=== PATIENT | male | born 1990 | race Asian ===

== ENCOUNTER 2024-01-24 19:36 | Emergency (ER) | payer OTHER, SELFPAY ==
--- NOTE | ~2024-01-24 | XR_ITS ---
EXAMINATION: XR chest 2V Exam Date/Time: 01/24/2024 21:40 CDT HISTORY: chest pain Comparison: None. RESULT: Lines, tubes, and devices: None. Lungs and pleura: Clear. Cardiomediastinal silhouette: Normal. Other: No acute osseous or upper abdominal finding. IMPRESSION: No acute cardiopulmonary process. Reviewed, dictated and finalized at location K.
--- NOTE | 2024-01-24 19:38 | ECG_ITS ---
Test Date: 2024-01-24 19:41:[address] Rate: 80 P: 72 [place]: 191 QRS: 67 QRSD: 107 T: 59 QT: 351 QTc: 407 Interpretive Statements SINUS RHYTHM NONSPECIFIC T-WAVE ABNORMALITY No previous ECG available for comparison Electronically Signed On 01-25-2024 10:50:40 CDT by rPashant Paulson M.D.
[2024-01-24 19:43] VITALS: BP 143/90; PULSE 86; RESP 19; TEMP 36.6; O2SAT 100
[2024-01-24 19:57] LABS: Basophils Percent Auto 0.8 % (0.2-1.2); Eosinophils Percent Auto 0.8 % (0-4.4); Hematocrit 44.3 % (42.0-52.0); Hemoglobin 15.2 g/dL (14.0-18.0); Immature Granulocyte Absolute 0.01 K/mm3 (0.00-0.031); Immature Granulocyte Percent A 0.2 % (0-0.5); Lymphocytes Absolute Auto 1.34 K/mm3 (0.9-3.2); Mean Corpuscular HGB Conc 34.3 g/dl (32-36); Mean Corpuscular Hemoglobin 29.8 pg (26-34); Mean Corpuscular Volume 86.9 fl (80-100); Mean Platelet Volume 12.2 fl (7.4-10.4); Monocytes Absolute Auto 0.4 K/mm3 (0.1-0.6); Monocytes Percent Auto 7.7 % (2.6-8.5); Neutrophils Percent Auto 62.5 % (45.5-73.1); Platelet Count Result 156 k/mm3 (150-375); Red Cell Distribution Width 12.7 % (11.5-14.5); White Blood Count 4.8 K/mm3 (4.5-10.0)
[2024-01-24 20:11] LABS: Alanine Aminotransferase 19 U/L (6-50); Albumin Level 4.9 g/dL (3.5-5.1); Alkaline Phosphatase 40 U/L (38-126); Anion Gap 9 mmol/L (4-12); Aspartate Amino Transferase 23 U/L (17-59); Bilirubin,Total 0.7 mg/dL (0.2-1.3); Blood Urea Nitrogen 15 mg/dL (9-20); Calcium 9.7 mg/dL (8.4-10.2); Carbon Dioxide 27 mmol/L (22-30); Chloride 103 mmol/L (98-107); Estimated CRCL calculation 121 ml/min; Estimated Glomerular Filt Rate > 60; Glucose 124 mg/dL (65-110); Potassium 3.9 mmol/L (3.4-5.0); Sodium 139 mmol/L (137-145)
[2024-01-24 20:21] VITALS: PULSE 80
[2024-01-24] MEDS: SODIUM CHLORIDE 0.9% IV 1,000 ML 999 ML IV CONT (21:45)
[2024-01-24 22:02] LABS: Prothrombin Time 13.8 Seconds (11.1-14.7)
[2024-01-24 22:03] LABS: Partial Thromboplastin Time 28.9 Seconds (22.3-36.8)
[2024-01-24 22:17] LABS: Lipase 179 U/L (23-300)
[2024-01-24 22:31] LABS: Troponin I < 0.012 ng/mL (0.000-0.034)
--- NOTE | 2024-01-24 22:33 | ED.DIZZY ---
HPI - Dizziness General Chief Complaint: Dizziness Stated Complaint: dizzy, chest pain Time Seen by Provider: 01/24/24 20:36 History of Present Illness HPI Narrative: 33-year-old male with no past medical history presents to emergency department for left-sided chest pain and dizziness that started at 6:40 p.m. this evening. Patient states his delivered a baby yesterday at the [facility]. He was sleeping at the [facility] this evening when he woke up and felt dizzy and had some pleuritic left-sided chest pain. Upon my evaluation he states the chest pain is since resolved. He describes the dizziness as lightheadedness and like the room is spinning. he denies current chest pain, shortness of breath, abdominal pain, nausea vomiting, diarrhea, cough or congestion, fever. He does note that he her today that his [id number] 28 years old which has caused him a lot of stress. states his grandmother of cardiac arrest, otherwise denies any cardiac history. No history of hypertension, hyperlipidemia, diabetes. He does not smoke. Denies recent surgeries or hospitalizations, lower extremity edema, history of VTE. Related Data Allergies Allergy/AdvReac Type Severity Reaction Status Date / Time No Known Allergies Allergy Verified 01/24/24 20:30 Review of Systems Review of Systems: CONSTITUTIONAL: Denies fever, chills, or sweats. EYES: Denies visual changes, redness, or discharge. ENT: Denies rhinorrhea, congestion, sore throat, or otalgia. CARDIOVASCULAR: See HPI RESPIRATORY: Denies cough or dyspnea. GASTROINTESTINAL: Denies abdominal pain, nausea, vomiting, or diarrhea. GENITOURINARY: Denies dysuria or hematuria. SKIN: Denies rash or itching. MUSCULOSKELETAL: Denies back pain, joint pain, or myalgia. NEUROLOGIC: Denies headache, numbness, or weakness. PSYCHIATRIC: Denies anxiety or depression. Exam Narrative: GENERAL: Well-appearing, well-nourished, and in no acute distress. HEAD: Normocephalic, atraumatic. EYES: PERRLA and EOMI. ENT: Nares clear, no rhinorrhea or epistaxis. Mucous membranes moist. NECK: Supple. CHEST: Clear to auscultation. No respiratory distress. HEART: Regular rate and rhythm. No murmur heard. Normal peripheral pulses. ABDOMEN: Soft, nontender, nondistended, normal active bowel sounds. EXTREMITIES: Normal range of motion. No edema. SKIN: Warm, dry, no rash. NEURO: No focal deficits. Alert and oriented x3 Course Vital Signs Vital signs: Vital Signs Temperature 97.8 F 01/24/24 19:43 Pulse Rate 86 01/24/24 19:43 Respiratory Rate 19 01/24/24 19:43 Blood Pressure 143/90 H 01/24/24 19:43 Pulse Oximetry 100 01/24/24 19:43 Oxygen Delivery Room Air 01/24/24 19:43 Temperature 97.8 F 01/24/24 19:43 Pulse Rate 79 01/25/24 00:36 Respiratory Rate 18 01/25/24 00:36 Blood Pressure 125/92 H 01/25/24 00:36 Pulse Oximetry 100 01/25/24 00:36 Oxygen Delivery Room Air 01/24/24 19:43 MDM - Dizziness MDM Narrative Medical decision making narrative: 33-year-old male presents to the emergency department for left-sided pleuritic chest pain and dizziness today that occurred at 6:45 p.m. this evening after waking up from a nap. Chest pain resolved at the time of my evaluation. Vital significant for blood pressure 143/90, otherwise unremarkable. Patient is well-appearing on exam. EKG shows sinus rhythm with nonspecific T-wave abnormality, normal OR interval, normal QRS duration, normal QTC, no ischemic changes. Troponin is undetectable X2. Lipase normal. Chest x-ray shows no acute cardiopulmonary abnormality. workup discussed with the patient. He received IV fluids and meclizine with improvement in symptoms. He is ambulatory in the ED. His heart score is 1. Feel he is safe to be discharged home. Symptoms seem consistent with stress given his recent 24 hours. Strict ED return precautions discussed. He is agreeable with t
[2024-01-24] MEDS: MECLIZINE HCL 25 MG TABLET PO (22:41)
[2024-01-24 23:36] VITALS: BP 130/84; PULSE 85; RESP 18; O2SAT 100
[2024-01-25 00:36] VITALS: BP 125/92; PULSE 79; RESP 18; O2SAT 100
[2024-01-25 01:04] LABS: Troponin I < 0.012 ng/mL (0.000-0.034)
== END 2024-01-25 01:23 | disposition home or self-care (01) ==
PROVIDERS: Student in an Organized Health Care Education/Training Program; Emergency Provider Physician Assistant
DX: R42 Dizziness and giddiness (principal); R07.89 Other chest pain; R94.31 Abnormal electrocardiogram [ECG] [EKG]
CPT/HCPCS: 36415; 71046; 80053; 83690; 84484; 85025; 85610; 85730; 93005; 96360; 99284; A9270; J7030

== ENCOUNTER 2024-10-25 16:32 | Outpatient (CLI) | payer OTHER, SELFPAY ==
--- NOTE | ~2024-10-25 | XR_ITS ---
CHEST RADIOGRAPH, PA AND LATERAL CLINICAL HISTORY: chest pain and tightness . COMPARISON: 01/24/2024 TECHNIQUE: PA and lateral views of the chest. FINDINGS The cardiomediastinal silhouette is unremarkable. The lungs are clear. Visualized osseous structures and soft tissues are unremarkable. IMPRESSION: No focal infiltrate or effusion. Reviewed, dictated and finalized at location A.
[2024-10-25 17:39] LABS: Basophils Percent Auto 0.4 % (0.2-1.2); Eosinophils Percent Auto 0.5 % (0-4.4); Hematocrit 45.6 % (42.0-52.0); Immature Granulocyte Absolute 0.01 K/mm3 (0.00-0.031); Immature Granulocyte Percent A 0.2 % (0-0.5); Lymphocytes Absolute Auto 1.08 K/mm3 (0.9-3.2); Lymphocytes Percent Auto 19.7 % (18.3-44.2); Mean Corpuscular HGB Conc 32.9 g/dl (32-36); Mean Corpuscular Hemoglobin 29.2 pg (26-34); Mean Corpuscular Volume 88.7 fl (80-100); Mean Platelet Volume 12.7 fl (7.4-10.4); Monocytes Absolute Auto 0.4 K/mm3 (0.1-0.6); Monocytes Percent Auto 6.4 % (2.6-8.5); Neutrophils Percent Auto 72.8 % (45.5-73.1); Platelet Count Result 159 k/mm3 (150-375); Red Blood Count 5.14 M/mm3 (4.6-6.20); Red Cell Distribution Width 12.7 % (11.5-14.5); White Blood Count 5.5 K/mm3 (4.5-10.0)
[2024-10-25 17:50] LABS: Alanine Aminotransferase 22 U/L (6-50); Albumin Level 4.8 g/dL (3.5-5.1); Alkaline Phosphatase 42 U/L (38-126); Anion Gap 10 mmol/L (4-12); Aspartate Amino Transferase 24 U/L (17-59); Bilirubin,Total 0.5 mg/dL (0.2-1.3); Blood Urea Nitrogen 13 mg/dL (9-20); Calcium 9.7 mg/dL (8.4-10.2); Carbon Dioxide 28 mmol/L (22-30); Chloride 101 mmol/L (98-107); Estimated Glomerular Filt Rate > 60; Glucose 101 mg/dL (65-110); Potassium 3.9 mmol/L (3.4-5.0); Sodium 139 mmol/L (137-145)
--- OUTSIDE RECORDS SUMMARY | 2024-10-25 17:53 | XMS_ITS | Referral Summary ---
Author Organization [facility] [place] [facility] [address] Address [address] [place] [id number] Care Team Providers Care Chemical Recovery Operator Name Role Phone Unknown, Notinfile Primary Care Provider Unavail able Allergies No known active allergies Medications albuterol HFA (PROVENTIL HFA,VENTOLIN HFA,PROAIR HFA) 90 mcg/actuation inhaler Inhale 2 puffs every 6 (six) hours as needed for wheezing or shortness of breath 1 each 2 Active Additional Information Patient not taking.Reported on 02/13/2023 Active Problems Problem Noted Date Diagnosed Date Bilateral impacted cerumen 04/22/2023 Assessment & Plan (04/19/2024 3:24 PM CDT): Avoid ear cleaning techniques Follow up in one year for recheck Acute otitis externa of left ear 04/21/2023 Assessment & Plan (04/21/2023 3:07 PM CDT): Stop ofloxacin drops Finish Amoxicillin Avoid ear cleaning techniques Avoid water to ears Follow up in one year for ear check Start Vinegar and alcohol daily after shower for one week Social History Tobacco Use Types Packs/Day Years Used Date Smoking Tobacco: Never Smokeless Tobacco: Never Tobacco Cessation:Counseling Given: Not Answered Sex and Gender Information Value Date Recorded Sex Assigned at Not on file Legal Sex Male 1:[address] Gender Identity Not on file Sexual Orientation Not on file Last Filed Vital Signs Vital Sign Reading Time Taken Comments Blood Pressure 119/80 04/21/2023 2:45 PM CDT Pulse 93 04/21/2023 2:45 PM CDT Temperature 36.6 C (97.8 F) 04/21/2023 2:45 PM CDT Respiratory Rate 18 04/21/2023 2:45 PM CDT Oxygen Saturation 98% 04/21/2023 2:45 PM CDT Inhaled Oxygen Concentration - - Weight 79.1 kg (174 lb 4.8 oz) 04/19/2024 3:02 P M CDT Height 182.9 cm (6' 0.01 ) 04/19/2024 3:02 PM CD T Body Mass Index 23.63 04/19/2024 3:02 PM CDT Plan of Treatment Not on file [place] [address] [facility] [place] [address] [facility] Care Teams Chemical Recovery Operator Relationship Specialty Start Date End Date Unknown, Notinfile PCP - General 07/16/22
--- OUTSIDE RECORDS SUMMARY | 2024-10-25 17:53 | XMS_ITS | Data Portability ---
Author Organization [place] [facility] [employer], Main Office Address [address] [place] [address] Assessment No assessment recorded. Plan of Treatment Reminders Order Date Submit Date Provider Last Modified By Organization Details Last Modified Time Details Appointments Sick/Acu te 2024 04:00P Dodie Leigh NP Not available Not available Not available Lab CBC w/ auto diff 2023 024 [email or web address] [facility], [address], [place], [address], 06/01/2024 10:09:01 CMP, serum or plasma 2023 024 [email or web address] [facility], [address], [place], [address], 06/01/2024 10:09:01 lipid panel, serum 2023 024 [email or web address] [facility], [address], [place], [address], 06/01/2024 10:09:01 HbA1c (hemoglo bin A1c), blood 2023 024 [email or web address] [facility], [address], [place], [address], 06/01/2024 10:09:01 vitamin D, 25-hydro xy, total, serum 2023 024 [email or web address] [facility], [address], [place], [address], 06/01/2024 10:09:02 TSH + free T4, serum 2023 024 [email or web address] [facility], [address] [address], [place], [address], 06/01/2024 10:09:02 Referral None recorded . Procedures None recorded . Surgeries None recorded . Imaging None recorded . Medication Orders None recorded . Patient TargetsNo targets recorded. Patient InstructionsNo instructions recorded. Reason for Referral None Reported. Results Created Date Observation Date Name Description Value Unit Range Abnormal Flag Note LastModifiedBy Organization Detail LastModifiedTime 06/06/2006/07/2024 TSH+F REE T4 TSH 1.280 uIU/m L 0.450- 4.500 normal Not Available [facility] ([facility]) [address] [place], [address], 06/07/2024 07:17:17 06/06/20 24 06/07/2024 TSH+F REE T4 T4,free(dire ct) 1.13 NG/dL 0.82-1 .77 normal Not Available [facility] ([facility]) [address] [place], [address], 06/07/2024 07:17:17 06/06/20 24 06/06/2024 CBC WITH DIFFE RENTI AL/PL ATELE T WBC 3.2 x10e3 /uL 3.4-10 .8 below low normal Not Available [facility] ([facility]) [address] [place], [address], 06/07/2024 07:17:18 06/06/2006/06/2024 CBC WITH DIFFE RENTI AL/PL ATELE T RBC 5.08 x10e6 /uL 4.14-5 .80 normal Not Available [facility] ([facility]) [address] [place], [address], 06/07/2024 07:17:18 06/06/20 24 06/06/2024 CBC WITH DIFFE RENTI AL/PL ATELE T hemoglobin 15.1 g/dL 13.0-1 7.7 normal Not Available [facility] ([facility]) [address] [place], [address], 06/07/2024 07:17:18 06/06/20 24 06/06/2024 CBC WITH DIFFE RENTI AL/PL ATELE T hematocrit 46.4 % 37.5-5 1.0 normal Not Available [facility] ([facility]) [address] [facility], [place], [address], 06/07/2024 07:17:18 06/06/2006/06/2024 CBC WITH DIFFE RENTI AL/PL ATELE T MCV 91 fL 79-97 normal Not Available [facility] ([facility]) [address] [facility], [place], [address], 06/07/2024 07:17:18 06/06/2006/06/2024 CBC WITH DIFFE RENTI AL/PL ATELE T MCH 29.7 pg 26.6-3 3.0 normal Not Available [facility] ([facility]) [address] [place], [address], 06/07/2024 07:17:18 06/06/20 24 06/06/2024 CBC WITH DIFFE RENTI AL/PL ATELE T MCHC 32.5 g/dL 31.5-3 5.7 normal Not Available [facility] ([facility]) [address] [place], [address], 06/07/2024 07:17:18 06/06/2006/06/2024 CBC WITH DIFFE RENTI AL/PL ATELE T RDW 12.5 % 11.6-1 5.4 Not Available [facility] ([facility]) [address] [place], [address], 06/07/2024 07:17:18 06/06/20 24 06/06/2024 CBC WITH DIFFE RENTI AL/PL ATELE T platelets 133 x10e3 /uL 150-45 0 below low normal Not Available [facility] ([facility]) [address] [facility], [place], [address], 06/07/2024 07:17:18 06/06/20 24 06/06/2024 CBC WITH DIFFE RENTI AL/PL ATELE T neutrophils 52 % not estab. normal Not Available [facility] ([facility]) [address] [facility], [place], [address], 06/07/2024 07:17:18 06/06/20 24 06/06/2024 CBC WITH DIFFE RENTI AL/PL ATELE T lymphs 36 % not estab. normal Not Available [facility] ([facility]) [address] [facility], [place], [address], 06/07/2024 07:17:18 06/06/20 24 06/06/2024 CBC WITH DIFFE RENTI AL/PL ATELE T monocytes 9 % not estab. normal Not Available [facility] ([facility]) [address] [facility], [place], [address], 06/07/2024 07:17:18 06/06/20 24 06/06/2024 CBC WITH DIFFE RENTI AL/PL ATELE T eos 2 % not estab. normal Not Available [facility] ([facility] [address] [facility], [place], [address], 06/07/2024 07:17:18 06/06/2006/06/2024 CBC WITH DIFFE RENTI AL/PL ATELE T basos 1 % not estab. normal Not Available [facility] ([facility]) [address] [place], [address], 06/07/2024 07:17:18 06/06/20 24 06/06/2024 CBC WITH DIFFE RENTI AL/PL ATELE T immature cells STEAM DRIER OPERATOR Not Available [facility] ([facility] [address] [place], [address], 06/07/2024 07:17:18 06/06/20 24 06/06/2024 CBC WITH DIFFE RENTI AL/PL ATELE T neutrophils (absolute) 1.7 x10e3 /uL 1.4-7. 0 normal Not Available [facility] ([facility]) [address] [facility], [place], [address], 06/07/2024 07:17:18 06/06/20 24 06/06/2024 CBC WITH DIFFE RENTI AL/PL ATELE T lymphs (absolute) 1.1 x10e3 /uL 0.7-3. 1 normal Not Available [facility] ([facility] [address] [place], [address], 06/07/2024 07:17:18 06/06/20 24 06/06/2024 CBC WITH DIFFE RENTI AL/PL ATELE T monocytes(ab solute) 0.3 x10e3 /uL 0.1-0. 9 normal Not Available [facility] ([facility] [address] [place], [address], 06/07/2024 07:17:18 06/06/20 24 06/06/2024 CBC WITH DIFFE RENTI AL/PL ATELE T eos (absolute) 0.1 x10e3 /uL 0.0-0. 4 normal Not Available [facility] ([facility] [address] [place], [address], 06/07/2024 07:17:18 06/06/20 24 06/06/2024 CBC WITH DIFFE RENTI AL/PL ATELE T baso (absolute) 0.0 x10e3 /uL 0.0-0. 2 normal Not Available [facility] ([facility] [address] [place], [address], 06/07/2024 07:17:18 06/06/20 24 06/06/2024 CBC WITH DIFFE RENTI AL/PL ATELE T immature granulocytes 0 % not estab. Not Available [facility] ([facility]) [address] [facility], [place], [address], 06/07/2024 07:17:18 06/06/20 24 06/06/2024 CBC WITH DIFFE RENTI AL/PL ATELE T immature grans (abs) 0.0 x10e3 /uL 0.0-0. 1 Not Available [facility] ([facility] [address] [facility], [place], [address], 06/07/2024 07:17:18 06/06/20 24 06/06/2024 CBC WITH DIFFE RENTI AL/PL ATELE T NRBC STEAM DRIER OPERATOR Not Available [facility] ([facility] [address] [facility], [place], [address], 06/07/2024 07:17:18 06/06/20 24 06/06/2024 CBC WITH DIFFE RENTI AL/PL ATELE T hematology comments: STEAM DRIER OPERATOR Not Available [facility] [address] [facility], [place], [address], 06/07/2024 07:17:18 06/06/20 24 06/07/2024 COMP. METAB OLIC PANEL (14) glucose 102 mg/dL 70-99 above high normal Not Available [facility] ([facility]) [address] [facility], [place], [address], 06/07/2024 07:17:19 06/06/20 24 06/07/2024 COMP. METAB OLIC PANEL (14) BUN 13 mg/dL 6-20 normal Not Available [facility] ([facility]) [address] [place], [address], 06/07/2024 07:17:19 06/06/20 24 06/07/2024 COMP. METAB OLIC PANEL (14) creatinine 0.83 mg/dL 0.76-1 .27 normal Not Available [facility] ([facility]) [address] [place], [address], 06/07/2024 07:17:19 06/06/20 24 06/07/2024 COMP. METAB OLIC PANEL (14) eGFR 119 mL/mi n/1.7 3 >59 normal Not Available [facility] ([facility]) [address] [facility], [place], [address], 06/07/2024 07:17:19 06/06/20 24 06/07/2024 COMP. METAB OLIC PANEL (14) BUN/creatini ne ratio 16 9-20 normal Not Available [facility] [address] [place], [address], 06/07/2024 07:17:19 06/06/20 24 06/07/2024 COMP. METAB OLIC PANEL (14) sodium 142 mmol/ L 134-14 4 normal Not Available [facility] ([facility] [address] [facility], [place], [address], 06/07/2024 07:17:19 06/06/2006/07/2024 COMP. METAB OLIC PANEL (14) potassium 3.9 mmol/ L 3.5-5. 2 normal Not Available [facility] ([facility]) [address] [facility], [place], [address], 06/07/2024 07:17:19 06/06/20 24 06/07/2024 COMP. METAB OLIC PANEL (14) chloride 105 mmol/ L 96-106 normal Not Available [facility] ([facility] [address] [place], [address], 06/07/2024 07:17:19 06/06/20 24 06/07/2024 COMP. METAB OLIC PANEL (14) carbon dioxide, total 25 mmol/ L 20-29 normal Not Available [facility] ([facility] [address] [place], [address], 06/07/2024 07:17:19 06/06/2006/07/2024 COMP. METAB OLIC PANEL (14) calcium 9.7 mg/dL 8.7-10 .2 normal Not Available [facility] ([facility]) [address] [place], [address], 06/07/2024 07:17:19 06/06/2006/07/2024 COMP. METAB OLIC PANEL (14) protein, total 6.8 g/dL 6.0-8. 5 normal Not Available [facility] ([facility]) [address] [place], [address], 06/07/2024 07:17:19 06/06/2006/07/2024 COMP. METAB OLIC PANEL (14) albumin 4.4 g/dL 4.1-5. 1 normal Not Available [facility] ([facility] [address] [place], [address], 06/07/2024 07:17:19 06/06/2006/07/2024 COMP. METAB OLIC PANEL (14) globulin, total 2.4 g/dL 1.5-4. 5 Not Available [facility] ([facility] [address] [place], [address], 06/07/2024 07:17:19 06/06/2006/07/2024 COMP. METAB OLIC PANEL (14) bilirubin, total 0.4 mg/dL 0.0-1. 2 normal Not Available [facility] ([facility] [address] [place], [address], 06/07/2024 07:17:19 06/06/2006/07/2024 COMP. METAB OLIC PANEL (14) alkaline phosphatase 44 IU/L 44-121 normal Not Available [facility] [address] [place], [address], 06/07/2024 07:17:19 06/06/20 06/07/2024 COMP. METAB OLIC PANEL (14) AST (SGOT) 17 IU/L 0-40 normal Not Available [facility] ([facility] [address] [place], [address], 06/07/2024 07:17:19 06/06/20 24 06/07/2024 COMP. METAB OLIC PANEL (14) ALT (SGPT) 15 IU/L 0-44 normal Not Available [facility] ([facility]) [address] [facility], [place], [address], 06/07/2024 07:17:19 06/06/2006/07/2024 LIPID PANEL cholesterol, total 153 mg/dL 100-19 9 normal Not Available [facility] ([facility]) [address] [place], [address], 06/07/2024 07:17:20 06/06/2006/07/2024 LIPID PANEL triglyceride s 94 mg/dL 0-149 normal Not Available [facility] [address] [place], [address], 06/07/2024 07:17:20 06/06/20 24 06/07/2024 LIPID PANEL HDL cholesterol 38 mg/dL >39 below low normal Not Available [facility] ([facility]) [address] [place], [address], 06/07/2024 07:17:20 06/06/2006/07/2024 LIPID PANEL VLDL cholesterol dale 18 mg/dL 5-40 Not Available [facility] [address] [place], [address], 06/07/2024 07:17:20 06/06/2006/07/2024 LIPID PANEL LDL chol calc ([facility]) 97 mg/dL 0-99 Not Available [facility] [address] [place], [address], 06/07/2024 07:17:20 06/06/20 24 06/07/2024 LIPID PANEL LDL calc comment: STEAM DRIER OPERATOR Not Available [facility] [address] [facility], [place], [address], 06/07/2024 07:17:20 06/06/20 24 06/06/2024 HEMOG LOBIN A1C hemoglobin A1C 5.7 % 4.8-5. 6 above high normal Predi abete s: 5.7 - 6.4 Diabe luis fernando: >6.4 Glyce biju contr ol for adult s with diabe luis fernando: <7.0 Not Available [facility] ([facility]) [address] [facility], [place], [address], 06/07/2024 07:17:21 06/06/20 24 06/07/2024 VITAM IN D, 25-HY DROXY vitamin D, 25-hydroxy 11.4 NG/mL 30.0-1 00.0 below low normal Vitam in D defic iency has been defin ed by the Insti tute of Medic ine and an Endoc rine Socie ty pract ice guide line as a level of serum 25-OH vitam in D less than 20 ng/mL (1,2) . The Endoc rine Socie ty went on to fur er defin e vitam in D insuf ficie ncy as a level betwe en 21 and 29 ng/mL (2). 1. IOM (Inst itute of Medic ine). 2009. Dieta ry refer ence intak es for calci um and D. Rosales russell [place]: The [facility] Press . 2. Johanna boyle MF, Roberto ey [place], David off-F errar i VILLEDA, et al. Evalu ation , treat ment, and preve ntion of vitam in D defic iency : an Endoc rine Socie ty clini dale pract ice guide line. JCEM. 2010; 96(7) :1911 -30. Not Available [facility] ([facility]) [address] [facility], [place], [address], 06/07/2024 07:17:22 10/26/19 25 10/25/2024 XR, chest , 2 view No observ ation record ed. [address], [place], [address], 10/25/2024 18:32:25 Result Notes None recorded. Problems Name Problem SNOMED Code Status Onset Date Resolution Date Notes Provider Name and Address Organization Details Recorded Time Vitamin D deficiency 54333141 Active 024 AUDRA Cristina [address], [address], [place], [address], [employer] 08:33:28 Near syncope 999837042 Active 025 AUDRA Cristina [address], [address], [place], [address], [employer] 17:08:11 Chest discomfort 609171472 Active 025 AUDRA Cristina [address], [address], [place], [address], [employer] 17:10:04 Problem Notes None recorded. Procedures Surgical History None recorded. Imaging Results Imaging Date Name Status LastModified by Organiz ation Details LastModified Time 10/25/2024 XR, chest, 2 view active [address], [place], [address], 10/25/2024 18:32:25 Procedure Notes None recorded. Medical Equipment None Reported. Allergies No known drug allergies Medications Name Sig Start Date Stop Date Status Note LastModified by Organization Details LastModified Time ergocalcifer ol (vitamin D2) 1,250 mcg (50,000 unit) capsule TAKE 1 CAPSULE BY MOUTH EVERY WEEK 10/25 completed Not Available Not Available Not Available Vitals Date Recorded Body weight Body mass index (BMI) Body height Body temperature Heart rate Oxygen saturation Oxygen saturation in Arterial blood by Pulse oximetry Systolic blood pressure Diastolic blood pressure Provider Name and Address Organization Details Last Updated DateTime 4 [address]116.0 7 g 23.6 kg/m2 182.88 cm 98.3 [degF] 86 /min 98 % 98 % 130 mm[Hg] 82 mm[Hg] Randy Romero RN [facility] [employer] 16:53:05 Date Recorded Body height Body mass index (BMI) Body weight Body temperature Heart rate Oxygen saturation Oxygen saturation in Arterial blood by Pulse oximetry Pain severity - 0-10 verbal numeric rating [Score] - Reported Systolic blood pressure Diastolic blood pressure Provider Name and Address Organization Details Last Updated DateTime 5 182.88 cm 22.6 kg/m2 77635.1 3 g 98.7 [degF] 86 /min 98 % 98 % 0 116 mm[Hg] 82 mm[Hg] Emmy Monge MA [facility] [employer] 16:58:59 Social History Question Answer Notes LastModified by Organizat ion Details LastModified Time Tobacco Smoking Status Never Smoker Randy Romero RN [facility], [facility] [employer] 05/25/2024 16:53:33 What Is Your Level Of Alcohol Consumption? None Information not available 10/25/2024 What Is Your Level Of Caffeine Consumption? Heavy Information not available 10/25/2024 In The 14 Days Before Symptom Onset, Have You Had Close Contact With A Laboratory-confir med COVID-19 While That Case Was Ill? No Information not available 10/25/2024 In The 14 Days Before Symptom Onset, Have You Had Close Contact With A Person Who Is Under Investigation For COVID-19 While That Person Was Ill? No Information not available 10/25/2024 Are You Currently Employed? Yes Information not available 10/25/2024 What Type Of Diet Are You Following? 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 No Information no t available 10/25/2024 Do You Use Insect Repellent Routinely? No Information not available 10/25/2024 [facility] 10/25/2024 What Was The Date Of Your Most Recent Tobacco Screening? 10/25/2024 Information not available 10/25/2024 How Many Children Do You Have? 2 Information not available 10/25/2024 Do You Have Any Pets? No Information not available 10/25/2024 What Is Your Relationship Status? Information not available 10/25/2024 Do You Use Your Seat Belt Or Car Seat Routinely? Yes Information not available 10/25/2024 Do You Have Smoke And Carbon Monoxide Detectors In Your Home? Yes Information not available 10/25/2024 Are You Passively Exposed To Smoke? No Information no t available 10/25/2024 Are There Any Smokers In Your House? No Information not available 10/25/2024 Do You Participate In Social [employer]? Yes Information not available 10/25/2024 Do You Feel Stressed (tense, Restless, Nervous, Or Anxious, Or Unable To Sleep At Night)? [id number] Information not available 10/25/2024 Do You Use Any Illicit Or Recreational Drugs? No Information not available 10/25/2024 Do You Use Sunscreen Routinely? No Information not available 10/25/2024 Have You Recently Traveled Abroad? No Information not available 10/25/2024 Are You Currently In School? No Information not available 10/25/2024 Do You Have Any Dietary Restrictions? No Information not available 10/25/2024 Do You Or Have You Ever Used Any Other Forms Of Tobacco Or Nicotine? No Information not available 10/25/2024 Sex: Unknown Functional Status Question Answer Note LastModified by Organizat ion Details LastModified Time What is your exercise level? Occasional Information not available 10/25/2024 Mental Status None recorded. Family History Relationship Description Onset Age of this Age Resolved Age Notes LastModified by Organization Details LastModified Time Maternal Grandmother Family history of stroke [id number] Not available 05/2024 16:53:28 Medical History No medical history recorded. Immunizations Vaccine Type Date Status Note Provider Nam e and Address Organization Details Recorded Time Influenza, split virus, trivalent, PF 05/25/2024 completed Randy Romero RN [facility], [facility] 05/25/2024 17:04:36 Past Encounters Encounter ID Performer Location Encounter Start Date Encounter Closed Date Diagnosis/Indication Diagnosis SNOMED-CT Code Diagnosis ICD10 Code Diagnosis Note [id number] AUDRA Cristina [facility] Primary Care [facility] [address] [facility] [address] [place] [address] 05/25/2024 16:45:51 05/25/2024 17:03:27 Adult health examination 521965336 Z00.00 Discussed medication compliance and routine follow up.Discuss ed healthy diet and routine exercise.Eduard peaceiewed vaccine records and made recommenda tions as needed.Enc ouraged annual eye and dental exams, as well as twice yearly dental cleanings. Will check screening labs as listed below. Administra tion of influenza vaccine 76661509 Z23 [id number] Renita pizarro [facility] Primary Care [facility] [address] [facility] [address] [place] [address] 10/25/2024 16:53:35 10/25/2024 17:13:59 Near syncope 361393708 R55 Chest discomfort 0183241 09 R07.89 Health Concerns Section Related Observation LastModified by Organization Detai ls LastModified Time None Recorded Concern Status LastModified by Organization Details LastModified Time None Recorded Advance Directives Directive None Recorded Payers Encounter Date Sequence Insurance Name Policy Number Policy Whitlock Covered Member ID Whitlock Member ID Guarantor Name 05/25/2024 1 [employer] [id number] [facility] [id number] [facility] Notes Date Note Type Note Provider Name and Address Organization Details Recorded Time 05/25/2024 text/html Patient is a 33 year old male that presents to the office to establish care. Patient reports he has not been to a PCP since 2020 when he lived in [place]. Patient does not take any daily medications and has no medical concerns at this time. [id number] -2021 AUDRA Cristina [address] [facility], [facility] [address], [place], [address], [place] [facility] 05/25/2024 17:02:36
--- OUTSIDE RECORDS SUMMARY | 2024-10-25 17:53 | XMS_ITS | Clinical Summary ---
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 Gender Identity Not on file Sexual Orientation Not on file Obstetrics History Last Filed Vital Signs Vital Sign Reading [...] 04/19/2024 3:02 PM CDT Plan of Treatment Health Maintenance Due Date Last Done Comments Depression Screening 1990 Hepatitis C Screening 1990 DTaP/Tdap/Td Vaccine (1 - Tdap) 2001 Varicella Vaccines (1 of 2 - 13+ 2-dose series) 2003 Hepatitis B Screening 2008 Regular Well Visit/Exam 18-64 2008 Influenza Vaccine (#1) 2024 HPV Vaccines Aged Out No longer eligi ble based on patient's age to complete this topic Pneumococcal vaccine <65 Aged Out No longer eligible based on patient's age to complete this topic Insurance [facility] Care Teams Paper Mill Manager Relationship Specialty Start Date End Date Unknown, Notinfile PCP - General 07/16/22
== END 2024-10-25 16:33 | disposition home or self-care (01) ==
PROVIDERS: PCP Nurse Practitioner Family; Visit Provider Nurse Practitioner Family
DX: R07.89 Other chest pain (principal)
CPT/HCPCS: 36415; 71046; 80053; 85025

== ENCOUNTER 2025-06-07 19:36 | Emergency (ER) | payer OTHER, SELFPAY ==
--- NOTE | ~2025-06-07 | XR_ITS ---
XR chest 2V HOSTORY: cp COMPARISON:[ None] FINDINGS: Frontal and lateral views of the chest were obtained. The lungs are clear. The heart size is normal in size. Pulmonary vasculature is unremarkable. Osseous structures are intact. IMPRESSION: No acute lung findings.] [ ] Reviewed, dictated and finalized at location S.
[2025-06-07 19:39] VITALS: BP 153/99; PULSE 89; RESP 16; TEMP 36.9; O2SAT 100
--- NOTE | 2025-06-07 19:41 | ECG_ITS ---
Test Date: 2025-06-07 19:44:43 Measurements Intervals [place] Rate: 82 P: 60 NE: 190 QRS: 68 QRSD: 102 T: 60 QT: 361 QTc: 423 Interpretive Statements SINUS RHYTHM BASELINE ARTIFACT- I, III, AVL NORMAL ECG Compared to ECG 01/24/2024 19:41:35 NO SIGNIFICANT CHANGE Electronically Signed On 06-07-2025 20:56:30 CDT by Bridger Sarabia D.O.
[2025-06-07] MEDS: ASPIRIN 81 MG CHEWABLE TABLET 324 MG PO (19:53)
[2025-06-07 19:54] LABS: Hematocrit 44.2 % (42.0-52.0); Hemoglobin 14.9 g/dL (14.0-18.0); Immature Granulocyte Percent A 0.2 % (0-0.5); Lymphocytes Absolute Auto 1.00 K/mm3 (0.9-3.2); Mean Corpuscular HGB Conc 33.7 g/dl (32-36); Mean Corpuscular Hemoglobin 29.6 pg (26-34); Mean Corpuscular Volume 87.9 fl (80-100); Nucleated Red Blood Cells Absolute Auto 0.000 K/mm3 (0.0-0.012); Nucleated Red Blood Cells Perc 0.0 % (0.0-0.2); Platelet Count Result 154 k/mm3 (150-375); Red Blood Count 5.03 M/mm3 (4.6-6.20); White Blood Count 5.0 K/mm3 (4.5-10.0)
[2025-06-07 20:05] LABS: Alanine Aminotransferase 21 U/L (6-50); Albumin Level 4.5 g/dL (3.5-5.1); Alkaline Phosphatase 41 U/L (38-126); Anion Gap 7 mmol/L (4-12); Aspartate Amino Transferase 27 U/L (17-59); Bilirubin,Total 0.6 mg/dL (0.2-1.3); Blood Urea Nitrogen 13 mg/dL (9-20); Calcium 9.0 mg/dL (8.4-10.2); Carbon Dioxide 29 mmol/L (22-30); Chloride 101 mmol/L (98-107); Estimated CRCL calculation 128 ml/min; Estimated Glomerular Filt Rate > 60; Glucose 117 mg/dL (65-110); Lipase 214 U/L (23-300); Potassium 4.0 mmol/L (3.4-5.0); Sodium 137 mmol/L (137-145); Total Protein 7.6 g/dL (6.3-8.2)
[2025-06-07 20:10] LABS: INR 1.0; Prothrombin Time 13.6 Seconds (11.1-14.7)
[2025-06-07 20:11] LABS: Partial Thromboplastin Time 29.1 Seconds (22.3-36.8)
[2025-06-07 20:16] LABS: Troponin I < 0.012 ng/mL (0.000-0.034)
--- NOTE | 2025-06-07 20:59 | ED_ITS ---
HPI - Chest Pain General Chief Complaint: Chest Pain Stated Complaint: chest pain Time Seen by Provider: 06/07/25 20:48 History of Present Illness HPI narrative: 34-year-old male with history of anxiety presenting to the emergency department with reproducible left-sided sternal pain. Patient states that he was at work doing something strenuous when he began feeling anxious and had sudden-onset pain is left-sided sternum area. Pain worsens with movement in certain positions. No pain with deep breathing. No difficulty in breathing, nausea, vomiting, fever, chills. No back pain. No traumatic injuries. States he has had something similar happen previously which is why he is on medications for anxiety and also take some magnesium supplements. Has seen a informatics scientist and was cleared by them for this previously. No new injuries. No changes to his health otherwise. No cardiac history. No strong family history of cardiac disease. Related Data Allergies Allergy/AdvReac Type Severity Reaction Status Date / Time No Known Allergies Allergy Verified 01/24/24 20:30 Review of Systems 2 Review of Systems: As reviewed above in HPI Exam 2 Narrative: GENERAL: [Well-appearing, well-nourished, and in no acute distress.] HEAD: [Normocephalic, atraumatic.] EYES: [PERRLA and EOMI.] ENT: Nares clear, no rhinorrhea or epistaxis. Mucous membranes moist. NECK: Supple. CHEST: Clear to auscultation without any tachypnea or respiratory distress. On the left side of the sternal bone near the costochondral junction he has very reproducible pain with palpation but no overlying skin changes. No crepitus. HEART: [Regular rate and rhythm]. No murmur heard. [Normal peripheral pulses.] ABDOMEN: [Soft, nondistended], [nontender], [No rigidity or guarding] EXTREMITIES: Normal range of motion. [No edema.] SKIN: Warm, dry, no rash. NEURO: [No focal deficits]. Alert and oriented [x3.] PSYCH: [Normal mood and affect.] Course Vital Signs Vital signs: Vital Signs Temperature 36.9 C 06/07/25 19:39 Pulse Rate 89 06/07/25 19:39 Respiratory Rate 16 06/07/25 19:39 Blood Pressure 153/99 H 06/07/25 19:39 Pulse Oximetry 100 06/07/25 19:39 Oxygen Delivery Room Air 06/07/25 19:39 Temperature 36.9 C 06/07/25 19:39 Pulse Rate 76 06/07/25 21:54 Respiratory Rate 20 06/07/25 21:54 Blood Pressure 145/92 H 06/07/25 21:54 Pulse Oximetry 98 06/07/25 21:54 Oxygen Delivery Room Air 06/07/25 19:39 MDM - Chest Pain MDM Narrative Medical decision making narrative: 34-year-old male with history of anxiety presenting to the emergency department with reproducible left-sided sternal pain. Patient states that he was at work doing something strenuous when he began feeling anxious and had sudden-onset pain is left-sided sternum area. Pain worsens with movement in certain positions. No pain with deep breathing. No difficulty in breathing, nausea, vomiting, fever, chills. No back pain. No traumatic injuries. States he has had something similar happen previously which is why he is on medications for anxiety and also take some magnesium supplements. Has seen a informatics scientist and was cleared by them for this previously. No new injuries. No changes to his health otherwise. No cardiac history. No strong family history of cardiac disease. Clear to auscultation without any tachypnea or respiratory distress. On the left side of the sternal bone near the costochondral junction he has very reproducible pain with palpation but no overlying skin changes. No crepitus. Vital signs are unremarkable. No tachycardia, fever, hypoxemia. No significant blood pressure elevations. No risk factors for ACS. Most likely musculoskeletal versus anxiety induced. Low suspicion GI related such as spasm or GERD. Relayed this information to the patient. Cardiac workup underway with troponin, EKG, chest x-ray and basic labs. He was given Toradol for analgesia and re-evaluated. No leukocytosis or anemia. Normal platelet count. Electrolytes are normal. Normal glucose, normal LFTs. Negative troponin. Normal lipase. EKG unremarkable. Chest x-ray normal. No acute concerning findings. Safe for discharge with follow-up with his PCP. Medical Records Data Attestation: I reviewed the patient's medical records. Lab Data Attestation: I reviewed the patient's lab results. 06/07/25 19:49 06/07/25 19:49 Labs: Lab Results 06/07/25 Range/Units 19:49 WBC 5.0 (4.5-10.0) K/mm3 RBC 5.03 (4.6-6.20) M/mm3 Hgb 14.9 (14.0-18.0) g/dL Hct 44.2 (42.0-52.0) % MCV 87.9 (80-100) fl MCH 29.6 (26-34) pg MCHC 33.7 (32-36) g/dl RDW 12.6 (11.5-14.5) % Plt Count 154 (150-375) k/mm3 MPV 11.5 H (7.4-10.4) fl Immature Gran % (Auto) 0.2 (0-0.5) % Neut % (Auto) 70.7 (45.5-73.1) % Lymph % (Auto) 19.8 (18.3-44.2) % [place] % (Auto) 6.9 (2.6-8.5) % Eos % (Auto) 1.8 (0-4.4) % Baso % (Auto) 0.6 (0.2-1.2) % Lymph # (Auto) 1.00 (0.9-3.2) K/mm3 [place] # (Auto) 0.4 (0.1-0.6) K/mm3 Eos # (Auto) 0.1 (0-0.3) K/mm3 Baso # (Auto) 0.0 (0.0-0.1) K/mm3 Abs Immat Gran (auto) 0.01 (0.00-0.031) K/mm3 Absolute Neuts (auto) 3.6 (1.3-6.7) K/mm3 Absolute Nucleated RBC 0.000 (0.0-0.012) K/mm3 Nucleated RBC % 0.0 (0.0-0.2) % PT 13.6 (11.1-14.7) Seconds INR 1.0 APTT 29.1 (22.3-36.8) Seconds Sodium 137 (137-145) mmol/L Potassium 4.0 (3.4-5.0) mmol/L Chloride 101 (98-107) mmol/L Carbon Dioxide 29 (22-30) mmol/L Anion Gap 7 (4-12) mmol/L BUN 13 (9-20) mg/dL Creatinine 0.76 (0.7-1.3) mg/dL Estim Creat Clear Calc 128 ml/min Estimated GFR > 60 (59 - ) Glucose 117 H (65-110) mg/dL Calcium 9.0 (8.4-10.2) mg/dL Total Bilirubin 0.6 (0.2-1.3) mg/dL AST 27 (17-59) U/L ALT 21 (6-50) U/L Alkaline Phosphatase 41 (38-126) U/L Troponin I < 0.012 (0.000-0.034) ng/mL Total Protein 7.6 (6.3-8.2) g/dL Albumin 4.5 (3.5-5.1) g/dL Lipase 214 (23-300) U/L Imaging Data Attestation: I personally reviewed and interpreted this imaging study as follows: My impression: Impressions Chest X-Ray 06/07/25 20:02 IMPRESSION: No acute lung findings.] [ ] Discharge Plan Discharge Clinical Impression: Chest pain Patient Disposition: Home Condition: Stable Instructions: Antibiotic Form, Chest Pain (ED), Chest Wall Pain (ED) Additional Instructions: Your electrolyte panel chest x-ray, EKG and cardiac enzymes are normal. No signs of any cardiac issues. Symptoms consistent with musculoskeletal pain versus costochondritis which is inflammation and irritation over the connecting joint between the ribcage and the sternum. We have prescribed some anti- inflammatories for aches and pains. Follow-up with regular doctor. Return with any emergent concerns. Patient Language: Kyr[place]z Prescriptions: New ibuprofen 800 mg tablet 800 mg PO TID PRN (Reason: pain) Qty: 30 0RF Follow-up/Referrals: Reese,Hilaria Tejeda NP [Primary Care Provider, Unknown] Time of Disposition: 22:11
[2025-06-07] MEDS: KETOROLAC 30 MG/ML VIAL (*BKC) 15 MG IM (21:06)
[2025-06-07 21:54] VITALS: BP 145/92; PULSE 76; RESP 20; O2SAT 98
== END 2025-06-07 22:32 | disposition home or self-care (01) ==
PROVIDERS: Emergency Provider Student in an Organized Health Care Education/Training Program; PCP Nurse Practitioner Family
DX: R07.2 Precordial pain (principal); F41.9 Anxiety disorder, unspecified
CPT/HCPCS: 36415; 71046; 80053; 83690; 84484; 85025; 85610; 85730; 93005; 99284; A9270; J1885